=== PATIENT | female | born 2000 | race Caucasian/White ===

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

== ENCOUNTER 2020-02-15 20:37 | Observation (INO) | payer BC, SELFPAY ==
[2020-02-15 20:42] VITALS: BP 120/62; PULSE 87; RESP 16; TEMP 37.1; O2SAT 100
[2020-02-15 21:01] LABS: Abs Immature Grans 0.04 k/cumm (0.0-0.09); Absolute Basophil Count 0.01 k/cumm (0.0-0.2); Absolute Eosinophil Count 0.06 k/cumm (0.0-0.7); Absolute Lymphocyte Count 2.52 k/cumm (1.2-3.4); Absolute Monocyte Count 1.05 k/cumm (0.11-0.7); Absolute Neutrophil Count 10.46 k/cumm (1.2-6.7); Basophils % 0.1; Eosinophils % 0.4; HCT 38.4 % (36.0-46.0); HGB 13.1 g/dL (12.0-15.5); Immature Grans % 0.3 %; Lymphocytes % 17.8; Mean Corp. HGB Concentration 34.1 g/dL (32.0-36.0); Mean Corpuscular Hemoglobin 30.5 pg (27.0-33.0); Mean Corpuscular Volume 89.5 fL (80-95); Mean Platelet Volume 10.4 fL (8.0-11.0); Monocytes % 7.4; Platelet Count 216 x1000/uL (130-400); RBC 4.29 m/cumm (4.00-5.20); RBC Distribution Width 11.5 % (11.7-14.6); White Blood Cell Count 14.13 k/cumm (4.4-10.8)
[2020-02-15 21:11] LABS: ALT 23 U/L (14-59); AST 18 U/L (15-37); Albumin 4.3 g/dL (3.4-5.0); Alkaline Phosphatase 117 U/L (46-116); Anion Gap 9.8 mmol/L (3-11); BUN 14 mg/dL (7-18); Bilirubin, Total 0.5 mg/dL (0.2-1.0); CO2 28.2 mmol/L (21.0-32.0); CREATININE 0.87 mg/dL (0.55-1.02); Calcium 9.5 mg/dL (8.5-10.1); Chloride 99 mmol/L (98-107); Glucose 100 mg/dL (74-106); Potassium 3.8 mmol/L (3.5-5.1); Sodium 137 mmol/L (136-145); Total Protein 8.2 g/dL (6.4-8.2)
--- NOTE | 2020-02-15 21:30 | DI.CT_ITS ---
EXAM: CT ABDOMEN PELVIS W CLINICAL HISTORY: Right lower quadrant pain, WBC 14,000 TECHNIQUE: Imaging Protocol: Axial computed tomography images with coronal and sagittal reformatted images were created and reviewed CONTRAST MATERIAL: Intravenous: Omnipaque 350 Contrast volume:100 mL Oral: No COMPARISON: No exams were available for comparison FINDINGS: ABDOMEN: Lung Bases: Normal where visualized. Liver: Normal density. No measurable mass. Portal, Superior Mesenteric, and Splenic Veins: Unremarkable. Gallbladder and Biliary Tract: No radiodense calculus or dilation. Pancreas: Normal density, no abnormal calcifications or inflammatory process. Spleen: Normal. Adrenals: No masses seen. Kidneys: Normal size, contour and axis. No radiodense stones or obstructive uropathy. No masses seen. Abdominal Aorta: Abdominal portion non-dilated. Bowel: No obstruction or bowel wall thickening. The appendix is 1.2 cm in diameter with the enhancing wall. Periappendiceal inflammatory changes are seen. There is a focus of hyperdensity within the a ppendix suspicious for a tiny appendicolith. No abscess or free air. Peritoneal Cavity: There is a tiny amount of free fluid in the cul-de-sac. Lymph Nodes: Within normal limits. Bones: Unremarkable. Soft Tissues: Unremarkable. PELVIS: Bladder: Symmetric distention, no gross wall thickening. Reproductive Organs: There is an intrauterine device in position. There is a 2.9 x 2.3 cm dominant f ollicle on the right ovary. Lymph Nodes: Within normal limits. Bones: Within normal limits. IMPRESSION: Findings consistent with acute appendicitis. Appendicoliths is present. No abscess or free air. RADIATION DOSE DELIVERED: Total DLP DATA REPOSITORY: All CT scans at this facility are submitted to the National Radiology Data Registry (NRDR) Dose Index Registry (DIR) with the [employer] (ACR). RADIATION OPTIMIZATION: All CT scans at this facility use at least one of these dose optimization te chniques: automated exposure control; mA and/or kV adjustment per patient size (includes targeted exa ms where dose is matched to clinical indication); or iterative reconstruction.
[2020-02-15] MEDS: Normal Saline 1,000 ML 1000 ML IV (21:37)
[2020-02-15 21:39] LABS: Bilirubin Negative (Negative); Blood Negative (Negative); Clarity Sl Cloudy (Clear); Glucose Negative (Negative); Ketones Negative (Negative); Leukocyte Esterase Negative (Negative); Nitrite Negative (Negative); Specific Gravity 1.015 (1.005-1.025); Urobilinogen 0.2 EU/dL (Up TO 0.2)
[2020-02-15] MEDS: Omnipaque 350 MG/ML 100 ML BTL IJ (22:04)
[2020-02-15] MEDS: Normal Saline - Diluent 50 ML VIAL IV (22:05)
--- NOTE | 2020-02-15 22:20 | ED.GENADUL_ITS ---
Discharge Plan Disposition Patient Disposition: OTHER Condition: Serious Discharge Details Chief Complaint: Abd Prob Clinical Impression: Acute appendicitis Primary Care Provider: Sandra Lopez ED Provider: Parish Bear Home Meds and New Rx's Prescriptions: No Action Mirena 20 mcg/24 hr (5 years) intrauterine device 1 insert IY ONCE Qty: 1 RF: 0 ferrous sulfate 27 mg iron tablet 27 mg PO DAILY RF: 0 cholecalciferol (vitamin D3) 3,000 unit tablet 1,000 unit PO DAILY RF: 0 spironolactone 50 mg tablet 100 mg PO DAILY RF: 0 Medical Decision Making <ELIZABETH Awan - Last Filed: 02/15/20 22:57> This is a 19-year-old female who presents with abdominal pain, nausea, lack of appetite for the past 24-48 hours. Given her evaluation I do believe that most likely diagnosis is that of appendicitis but certainly cannot rule out diagnosis such as muscular strain, gastroenteritis, pyelonephritis, UTI, ovarian cyst, etc. I feel as though ovarian torsion is highly unlikely given her presentation. Will give IV fluid, obtain routine laboratory values and CT if indicated. White blood cell count of 14.13. Laboratory values otherwise unremarkable. CT obtained and virtual radiology reads the CT as acute appendicitis, 10 mm in length. Wall thickening with stranding, no perforation or free fluid. Also right ovarian cyst. Patient given IV Zosyn. Discussed the case with Dr. Callejas who will be happy to admit the patient to her services, request that I put in holding orders in the meantime. Holding orders placed. Diagnosis and plan discussed with patient. She has no additional questions or concerns. Declines pain medication at this time Medical Records Medical records reviewed: Yes I reviewed the patient's medical records. Lab Data Lab results reviewed: Yes I reviewed the patient's lab results. Lab results narrative: Laboratory Tests Range/Units 02/15/20 02/15/20 02/15/20 20:50 20:50 21:26 WBC (4.4-10.8) k/cumm 14.13 H RBC (4.00-5.20) m/cumm 4.29 Hgb (12.0-15.5) g/dL 13.1 Hct (36.0-46.0) % 38.4 MCV (80-95) fL 89.5 MCH (27.0-33.0) pg 30.5 MCHC (32.0-36.0) g/dL 34.1 RDW (11.7-14.6) % 11.5 L Plt Count (130-400) x1000/uL 216 MPV (8.0-11.0) fL 10.4 Immature Gran % % 0.3 Neutrophils % 74.0 Lymphocytes % 17.8 Monocytes % 7.4 Eosinophils % 0.4 Basophils % 0.1 Absolute Neutrophils (1.2-6.7) k/cumm 10.46 H Absolute Lymphocytes (1.2-3.4) k/cumm 2.52 Absolute Monocytes (0.11-0.7) k/cumm 1.05 H Absolute Eosinophils (0.0-0.7) k/cumm 0.06 Absolute Basophils (0.0-0.2) k/cumm 0.01 Sodium (136-145) mmol/L 137 Potassium (3.5-5.1) mmol/L 3.8 Chloride (98-107) mmol/L 99 Carbon Dioxide (21.0-32.0) mmol/L 28.2 Anion Gap (3-11) mmol/L 9.8 BUN (7-18) mg/dL 14 Creatinine (0.55-1.02) mg/dL 0.87 Estimated GFR/1.73 m2 (mL/min/1.73m2) >= 60.00 Glucose (74-106) mg/dL 100 Calcium (8.5-10.1) mg/dL 9.5 Total Bilirubin (0.2-1.0) mg/dL 0.5 AST (15-37) U/L 18 ALT (14-59) U/L 23 Alkaline Phosphatase (46-116) U/L 117 H Total Protein (6.4-8.2) g/dL 8.2 Albumin (3.4-5.0) g/dL 4.3 Urine Color (Yellow) Straw Urine Clarity (Clear) Sl cloudy Urine pH (5-8) 7.0 Ur Specific [place] (1.005-1.025) 1.015 Urine Protein (Negative) mg/dL Negative Urine Ketones (Negative) mg/dL Negative Urine Blood (Negative) Negative Urine Nitrite (Negative) Negative Urine Bilirubin (Negative) Negative Urine Urobilinogen (Up TO 0.2) EU/dL 0.2 Ur Leukocyte Esterase (Negative) Negative Urine Glucose (Negative) mg/dL Negative <Gilbert Chinchilla MD - Last Filed: 02/15/20 22:53> I had a [id number] encounter with the patient. I evaluated the patient. I discussed case with TABLET MAKING MACHINE OPERATOR/PA and I reviewed TABLET MAKING MACHINE OPERATOR/PA note and agree with note as documented HPI <ELIZABETH Awan - Last Filed: 02/15/20 22:57> General Mode of arrival: ambulatory . Date/Time Provider Initiated Documentation: 02/15/20 20:50 . Limitations to Documentation: no limitations . HPI Narrative: This is a 19-year-old female with history of IUD, irregular menstrual cycle, last period roughly 2 months ago. She presents today reporting diffuse abdominal pain mild in nature that began yesterday associated with some nausea. Today the pain has been worse in the right lower quadrant and sharp in nature. Reports increased nausea and now a lack of appetite. Reports pain is worse with movement. Denies fever or recent illness. She has recently traveled to other places in [place] but has practiced good social distancing. She denies headache, sore throat, neck pain, chest pain, shortness of breath. Reports mild low back pain diffusely. Denies vaginal bleeding or discharge. Denies urinary symptoms or change in bowels. Patient reports that she is sexually active with one partner who has no symptoms. She has no history of STD. Related Data Home Medications Medication Instructions Recorded Confirmed levonorgestrel 20 mcg/24 hours (5 1 insert IY ONCE #1 each 08/30/18 02/15/20 yrs) 52 mg intrauterine device cholecalciferol (vitamin D3) 75 1,000 unit PO DAILY tab 08/12/19 02/15/20 mcg (3,000 unit) tablet ferrous sulfate 27 mg iron tablet 27 mg PO DAILY 08/12/19 02/15/20 spironolactone 100 mg PO DAILY 02/15/20 02/15/20 Previous Rx's Medication Instructions Recorded levonorgestrel 20 mcg/24 hours (5 1 insert IY ONCE #1 each 08/30/18 yrs) 52 mg intrauterine device Allergies Allergy/AdvReac Type Severity Reaction Status Date / Time No Known Allergies Allergy Verified 02/15/20 20:48 General Stated Complaint: Abd Prob KEARA: 3 Review of Systems <ELIZABETH Awan - Last Filed: 02/15/20 22:57> Constitutional Constitutional: Denies fatigue, Denies fever(s) and Denies headache(s) ENT Ears, Nose, Mouth, and Throat: Denies headache(s), Denies neck pain and Denies sore throat Cardiovascular Cardiovascular: Denies chest pain and Denies dyspnea Respiratory Respiratory: Denies cough and Denies dyspnea Gastrointestinal Gastrointestinal: Reports abdominal pain, Denies diarrhea, Reports nausea and Denies vomiting Genitourinary Genitourinary: Denies dysuria and Denies vaginal discharge Musculoskeletal Musculoskeletal: Reports back pain and Denies neck pain Integumentary/Breasts Skin/Breast: Denies rash Neurologic Neurologic: Denies headache(s) Endocrine Endocrine: Denies fatigue PFSH <ELIZABETH Awan - Last Filed: 02/15/20 22:57> Medical History Acne Asthma outgrown Herniated intervertebral disc of lumbar spine Family History Other Essential hypertension Hyperlipidemia Paternal grandparents Parkinson disease PGF Asthma Mother Asthma Other Heart disease Social History Smoking/Tobacco Use Status: Never Drug use: Never Substance use type: does not use Do you feel safe at home: Yes Do you feel safe in your relationship?: Yes Female Reproductive History Menstrual control method: vaginal ring and progestin IUCD (Mirena inserted by Mary Carmen Chinchilla APRN [id number] EXP=12/2020) History History 0 Para Hx # Term Pregnancies Multiple births Hx # Pregnancies Ectopic pregnancies AB induced Hx Number of Living Children AB spontaneous Exam <ELIZABETH Awan - Last Filed: 02/15/20 22:57> Const General: cooperative, healthy appearing, comfortable and no acute distress Orientation: alert, awake and oriented x3 HENMT Head: normal to inspection, normocephalic and atraumatic Mouth: moist mucous membranes Throat: posterior oropharynx normal Eyes Conjunctivae: conjunctivae normal Sclera: sclerae normal Neck Neck: normal visual inspection, full ROM, trachea midline and supple Resp Effort & Inspection: normal respiratory effort and able to speak in complete sentences Auscultation: clear to auscultation bilaterally Cardio Rate: regular rate Rhythm: regular rhythm GI Inspection: normal to inspection Palpation: soft, not firm, no guarding, not rigid and tender in the RLQ and with rebound tenderness Auscultation: normal bowel sounds Back/Spine/Pelvis Back: back tenderness Skin General skin exam: no rashes or lesions noted Neuro General: patient alert, patient awake, moves all extremities and no focal motor deficits Speech: speech normal Motor: muscle tone normal throughout Sensory Exam: no sensory deficits noted Psych Appearance: grossly normal Mental Status: mental status grossly normal Course <ELIZABETH Awan - Last Filed: 02/15/20 22:57> Vital Signs Vital signs: Vital Signs Temperature 37.1 C 02/15/20 20:42 Pulse 87 02/15/20 20:42 Respiratory Rate 16 02/15/20 20:42 Blood Pressure 120/62 02/15/20 20:42 Pulse Oximetry 100 02/15/20 20:42 Temperature 37.1 C 02/15/20 20:42 Temperature Source Oral 02/15/20 20:42 Pulse 87 02/15/20 20:42 Respiratory Rate 16 02/15/20 20:42 Respiratory Effort 02/15/20 20:46 Blood Pressure 120/62 02/15/20 20:42 Blood Pressure Position Sitting 02/15/20 20:42 Pulse Oximetry 100 02/15/20 20:42 Pain Level 8 02/15/20 20:42 Lab/Test Results Lab/Test Results: Laboratory Tests Range/Units 02/15/20 02/15/20 02/15/20 20:50 20:50 21:26 WBC (4.4-10.8) k/cumm 14.13 H RBC (4.00-5.20) m/cumm 4.29 Hgb (12.0-15.5) g/dL 13.1 Hct (36.0-46.0) % 38.4 MCV (80-95) fL 89.5 MCH (27.0-33.0) pg 30.5 MCHC (32.0-36.0) g/dL 34.1 RDW (11.7-14.6) % 11.5 L Plt Count (130-400) x1000/uL 216 MPV (8.0-11.0) fL 10.4 Immature Gran % % 0.3 Neutrophils % 74.0 Lymphocytes % 17.8 Monocytes % 7.4 Eosinophils % 0.4 Basophils % 0.1 Absolute Neutrophils (1.2-6.7) k/cumm 10.46 H Absolute Lymphocytes (1.2-3.4) k/cumm 2.52 Absolute Monocytes (0.11-0.7) k/cumm 1.05 H Absolute Eosinophils (0.0-0.7) k/cumm 0.06 Absolute Basophils (0.0-0.2) k/cumm 0.01 Sodium (136-145) mmol/L 137 Potassium (3.5-5.1) mmol/L 3.8 Chloride (98-107) mmol/L 99 Carbon Dioxide (21.0-32.0) mmol/L 28.2 Anion Gap (3-11) mmol/L 9.8 BUN (7-18) mg/dL 14 Creatinine (0.55-1.02) mg/dL 0.87 Estimated GFR/1.73 m2 (mL/min/1.73m2) >= 60.00 Glucose (74-106) mg/dL 100 Calcium (8.5-10.1) mg/dL 9.5 Total Bilirubin (0.2-1.0) mg/dL 0.5 AST (15-37) U/L 18 ALT (14-59) U/L 23 Alkaline Phosphatase (46-116) U/L 117 H Total Protein (6.4-8.2) g/dL 8.2 Albumin (3.4-5.0) g/dL 4.3 Urine Color (Yellow) Straw Urine Clarity (Clear) Sl cloudy Urine pH (5-8) 7.0 Ur Specific [place] (1.005-1.025) 1.015 Urine Protein (Negative) mg/dL Negative Urine Ketones (Negative) mg/dL Negative Urine Blood (Negative) Negative Urine Nitrite (Negative) Negative Urine Bilirubin (Negative) Negative Urine Urobilinogen (Up TO 0.2) EU/dL 0.2 Ur Leukocyte Esterase (Negative) Negative Urine Glucose (Negative) mg/dL Negative POC- Test(urine) Negative
[2020-02-15 22:25] VITALS: BP 121/69; PULSE 87; RESP 16; TEMP 36.9; O2SAT 98
--- NOTE | 2020-02-15 22:42 | DI.VRAD_ITS ---
PROCEDURE INFORMATION: Exam: CT Abdomen And Pelvis With Contrast Exam date and time: 02/15/2020 9:42 PM Age: 19 years old Clinical indication: Abdominal pain TECHNIQUE: Imaging protocol: Computed tomography of the abdomen and pelvis with intravenous contrast. Contrast material: OMINPAQUE 350; Contrast volume: 100 ml; Contrast route: INTRAVENOUS (IV); COMPARISON: IN ABDOMEN PELVIS ULTRASOUND 05/23/2015 3:25 PM FINDINGS: Lungs: The visualized lung bases appear normal. Liver: Normal. No mass. Gallbladder and bile ducts: The gallbladder is normal. There is no evidence of biliary ductal dilation. Pancreas: Normal. No ductal dilation. Spleen: The spleen is normal in size and density. Adrenals: The adrenal glands are normal. Kidneys and ureters: Unremarkable. No hydronephrosis, no renal or ureteral calculi. Stomach and bowel: There is no evidence of small bowel or colonic obstruction. There is mild fecal stasis throughout the colon. Appendix: The appendix demonstrates moderate diffuse distention, consistent with moderate acute appendicitis. There is periappendiceal inflammatory stranding and a small amount of free fluid. No evidence of abscess or perforation. Intraperitoneal space: There is no free fluid or free air in the peritoneal cavity. Vasculature: Unremarkable. No abdominal aortic aneurysm. Lymph nodes: Unremarkable. No enlarged lymph nodes. Bladder: Unremarkable as visualized. Reproductive: There is a T-shaped intrauterine device in expected position within the endometrial cavity. There is a dominant cyst or follicle in the right ovary measuring 2.9 by 2.3 cm. Bones/joints: Unremarkable. No acute fracture. Soft tissues: Unremarkable. IMPRESSION: 1. Moderate acute appendicitis. 2. A 2.9 cm dominant cyst or follicle in the right ovary. THIS REPORT CONTAINS FINDINGS THAT MAY BE CRITICAL TO PATIENT CARE. The findings were verbally communicated via telephone conference with Parish Bear at 10:38 PM EDT on 02/15/2020. The findings were acknowledged and understood. Dictated and Authenticated by: Sotero Israel MD. Ordering:DANIEL Lugo MD
[2020-02-15] MEDS: PIPERACILLIN/TAZO 3.375 GM in Normal Saline 50 ML IVPB (23:00)
[2020-02-16] VITALS (11 sets, daily range): BP systolic 91–116; BP diastolic 44–76; PULSE 53–86; RESP 11–17; TEMP 35.9–37.3; O2SAT 97–100
[2020-02-16] MEDS: Normal Saline 1,000 ML 150 ML IV (01:38)
[2020-02-16] MEDS: Ketorolac 30 MG/ML VIAL IVP (01:41)
[2020-02-16] MEDS: Normal Saline Flush 10 ML SYR IVP (01:41)
[2020-02-16] MEDS: ACETAMINOPHEN 1,000 MG/100 ML BTL 400 MG IVPB (01:45)
--- NOTE | 2020-02-16 06:02 | W.PM.HP.N ---
Date of service: 02/16/20 Time of Service: 06:02 Assessment and Plan Assessment and plan (1) Acute appendicitis: Status: Acute Assessment and plan: A\\ Healthy 19 year old female with acute Appendicitis P\\ Laparoscopic Appendectomy Risks, benefits and complications reviewed. Complications include but are not limited to bleeding, infection, abscess, injury to bowel and vessels, adverse reaction to medications and need for more surgery if an abscess develops. Questions were entertained and answered to her satisfaction and she wished to proceed. No guarantees were given or implied. Qualifiers: Acute appendicitis type: with localized peritonitis Appendicitis gangrene presence: without gangrene Appendicitis perforation presence: without perforation Appendicitis abscess presence: without abscess Qualified Code(s): K35.30 - Acute appendicitis with localized peritonitis, without perforation or gangrene History of Present Illness History of Present Illness Chief Complaint: Acute Appendicitis Consults Consult date: 02/16/20 Requesting physician: Parish Bear Narrative: This is a 19-year-old female with history of IUD, irregular menstrual cycle, last period roughly 2 months ago. She presents today reporting diffuse abdominal pain mild in nature that began yesterday associated with some nausea. Today the pain has been worse in the right lower quadrant and sharp in nature. Reports increased nausea and now a lack of appetite. Reports pain is worse with movement. Denies fever or recent illness. She has recently traveled to other places in [place] but has practiced good social distancing. She denies headache, sore throat, neck pain, chest pain, shortness of breath. Reports mild low back pain diffusely. Denies vaginal bleeding or discharge. Denies urinary symptoms or change in bowels. Patient reports that she is sexually active with one partner who has no symptoms. She has no history of STD. Admitted at midnight for surgery this morning. Has been able to sleep after getting some toradol and Tylenol as well as Morphine. No Nausea. CT scan ABDO\PELV FINDINGS: Lungs: The visualized lung bases appear normal. Liver: Normal. No mass. Gallbladder and bile ducts: The gallbladder is normal. There is no evidence of biliary ductal dilation. Pancreas: Normal. No ductal dilation. Spleen: The spleen is normal in size and density. Adrenals: The adrenal glands are normal. Kidneys and ureters: Unremarkable. No hydronephrosis, no renal or ureteral calculi. Stomach and bowel: There is no evidence of small bowel or colonic obstruction. There is mild fecal stasis throughout the colon. Appendix: The appendix demonstrates moderate diffuse distention, consistent with moderate acute appendicitis. There is periappendiceal inflammatory stranding and a small amount of free fluid. No evidence of abscess or perforation. Intraperitoneal space: There is no free fluid or free air in the peritoneal cavity. Vasculature: Unremarkable. No abdominal aortic aneurysm. Lymph nodes: Unremarkable. No enlarged lymph nodes. Bladder: Unremarkable as visualized. Reproductive: There is a T-shaped intrauterine device in expected position within the endometrial cavity. There is a dominant cyst or follicle in the right ovary measuring 2.9 by 2.3 cm. Bones/joints: Unremarkable. No acute fracture. Soft tissues: Unremarkable. IMPRESSION: 1. Moderate acute appendicitis. 2. A 2.9 cm dominant cyst or follicle in the right ovary. Review of Systems Constitutional Constitutional: Reports as per HPI, Denies fever(s), Denies headache(s) and Reports poor appetite Eyes Eyes: Denies change in vision ENT Ears, Nose, Mouth, and Throat: Denies change in voice, Denies headache(s) and Denies hoarseness Cardiovascular Cardiovascular: Denies chest pain, Denies irregular heart rhythm, Denies palpitations and Denies dyspnea Respiratory Respiratory: Denies cough and Denies dyspnea Gastrointestinal Gastrointestinal: Reports as per HPI, Denies change in bowel habits, Denies dyspepsia, Denies heartburn and Denies vomiting Genitourinary Genitourinary: Reports amenorrhea (IUD) and Denies dysuria Musculoskeletal Musculoskeletal: Reports system reviewed and no additional complaints, except as documented Integumentary/Breasts Skin/Breast: Reports system reviewed and no additional complaints, except as documented Neurologic Neurologic: Reports system reviewed and no additional complaints, except as documented and Denies headache(s) Psychiatric Psychiatric: Reports system reviewed and no additional complaints, except as documented Endocrine Endocrine: Reports system reviewed and no additional complaints, except as documented and Denies palpitations Hematologic/Lymphatic Hematologic/Lymphatic: Denies easy bleeding and Denies easy bruising [facility] Medical History (Updated 02/16/20 @ 06:10 by Mily Callejas MD) Acne Asthma outgrown Back pain with radiation (Inactive 02/04/14) seen by chiro who feels 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 ?-rec MRI and steroid taper- referred to ortho at [facility] [place] Herniated intervertebral disc of lumbar spine Herniation of multiple intervertebral discs (Inactive 02/12/14) L4-5, L5-S1 - NEUROSURGERY STEFANYNETTE HENRY March 2014 IUD surveillance (Inactive) Molluscum contagiosum (Inactive) 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 Surgical History (Updated 02/16/20 @ 06:06 by Mily Callejas MD) H/O arthroscopic knee surgery (Chronic) right knee x3 S/P discectomy for herniated nucleus pulposus (Inactive) Family History Other Essential hypertension Hyperlipidemia Paternal grandparents Parkinson disease PGF Asthma Mother Asthma Other Heart disease Social History (Updated 02/16/20 @ 06:06 by Mily Callejas MD) Smoking/Tobacco Use Status: Never Alcohol Intake: current Alcohol Intake frequency: a few times a month Drug use: Never Substance use type: does not use Household members: family Education Level: college Details: [employer]ando at [employer] Do you feel safe at home: Yes Do you feel safe in your relationship?: Yes Female Reproductive History Menstrual control method: vaginal ring and progestin IUCD (Mirena inserted by Mary Carmen Chinchilla APRN GZR=[id number] EXP=12/2020) History History 0 Para Hx # Term Pregnancies Multiple births Hx # Pregnancies Ectopic pregnancies AB induced Hx Number of Living Children AB spontaneous Meds Home Medications and Allergies Home Medications Medication Instructions Recorded Confirmed Type levonorgestrel 20 mcg/24 hours (5 1 insert IY ONCE #1 each 08/30/18 02/15/20 Rx yrs) 52 mg intrauterine device cholecalciferol (vitamin D3) 75 1,000 unit PO DAILY tab 08/12/19 02/15/20 History mcg (3,000 unit) tablet ferrous sulfate 27 mg iron tablet 27 mg PO DAILY 08/12/19 02/15/20 History spironolactone 100 mg PO DAILY 02/15/20 02/15/20 History Allergies Allergy/AdvReac Type Severity Reaction Status Date / Time No Known Allergies Allergy Verified 02/15/20 20:48 Exam Const General: cooperative and no acute distress Orientation: alert and oriented x3 HENMT Head: normocephalic and atraumatic Eyes Pupils: PERRL Resp Effort & Inspection: normal respiratory effort Auscultation: clear to auscultation bilaterally Cardio Rate: regular rate Rhythm: regular rhythm Heart Sounds: no gallops, no murmurs and no rubs GI Inspection: normal to inspection Palpation: soft and tender in the RLQ Auscultation: normal bowel sounds General: deferred Results Labs Result diagrams: 02/15/20 20:50 02/15/20 20:50 Labs: Laboratory Results - last 24 hr 02/15/20 02/15/20 02/15/20 20:50 20:50 21:26 WBC 14.13 H RBC 4.29 Hgb 13.1 Hct 38.4 MCV 89.5 MCH 30.5 MCHC 34.1 RDW 11.5 L Plt Count 216 MPV 10.4 Immature Gran % 0.3 Neutrophils % 74.0 Lymphocytes % 17.8 Monocytes % 7.4 Eosinophils % 0.4 Basophils % 0.1 Absolute Neutrophils 10.46 H Absolute Lymphocytes 2.52 Absolute Monocytes 1.05 H Absolute Eosinophils 0.06 Absolute Basophils 0.01 Sodium 137 Potassium 3.8 Chloride 99 Carbon Dioxide 28.2 Anion Gap 9.8 BUN 14 Creatinine 0.87 Estimated GFR/1.73 m2 >= 60.00 Glucose 100 Calcium 9.5 Total Bilirubin 0.5 AST 18 ALT 23 Alkaline Phosphatase 117 H Total Protein 8.2 Albumin 4.3 Urine Color Straw Urine Clarity Sl cloudy Urine pH 7.0 Ur Specific [place] 1.015 Urine Protein Negative Urine Ketones Negative Urine Blood Negative Urine Nitrite Negative Urine Bilirubin Negative Urine Urobilinogen 0.2 Ur Leukocyte Esterase Negative Urine Glucose Negative Last Vital Signs Temp 97.7 F 02/16/20 03:45 Pulse 60 02/16/20 03:45 Resp 16 02/16/20 03:45 BP 95/54 L 02/16/20 03:45 Pulse Ox 98 02/16/20 03:45 COVID-19 Screening In the past 14 days, have you traveled outside of [place]?: YES Had IN PERSON contact w/suspected or confirmed C-19 person: No
[2020-02-16] MEDS: PIPERACILLIN/TAZO 3.375 GM in Normal Saline 50 ML IVPB (06:47)
[2020-02-16] MEDS: Lactated Ringers 1,000 ML 30 ML IV (06:47)
[2020-02-16] MEDS: Lidocaine 1% Multi-Dose 50 ML VIAL (07:07)
--- NOTE | 2020-02-16 07:20 | APP_PTH ---
PATIENT: SILAS AGUIAR LOC: U#:[id number] AGE/SX: 19/F ROOM: RE02/15/[address]: Mily Callejas MD : 2000 BED: A DIS: 02/16/2020 SPEC #: [id number] RECD: 02/17/20 12:39 STATUS: SOUIvan REQ #: [id number] LINSEY: 02/16/20 07:[address]: Mily Callejas DEPT: Surgical Specimen RECD BY: Pamella Schmidt ENTERED: 02/17/20 12:39 SP TYPE: Appendix OTHR DR: Sandra Lopez Tissues: 1 - APPENDIX NOT INCIDENTAL Procedures: GROSS AND MICRO LEVEL 3 Comments: [id number]
[2020-02-16] MEDS: Bupivacaine LIPOSOME/PF 133 MG/10 ML VIAL IJ (07:23)
--- NOTE | 2020-02-16 07:48 | ROE_ITS ---
Date of service: 02/16/20 Time of Service: 07:48 Operative Note Operative Note DATE OF PROCEDURE: 02/16/20 PRE-OP DIAGNOSIS: acute appendicitis POST-OP DIAGNOSIS: same PROCEDURE: Laparoscopic appendectomy SURGEON: Mily Callejas [employer] COMPENSATION LEGAL SECRETARY: Gisselle Don ANESTHESIA: GETA and local (1% Lidocaine and Exparel) ESTIMATED BLOOD LOSS: 20 PATHOLOGY: other (Appendix) COMPLICATIONS: None Patient was transported to: PACU Patient's condition: stable Indications: Mrs. Franz is a pleasant 19 year old female admitted for acute appendicitis with <24 hours of pain. Laparoscopic appendectomy was recommended. Risks, benefits and complications have been reviewed. Complications include but are not limited to bleeding, infection, injury to adjacent bowel, abscess formation, staple line leak, inability to do the procedure laparoscopically and adverse reaction to the medications. Questions were entertained and answered to their satisfaction and they wished to proceed. No guarantees were given or implied. Findings: Enlarged distal half of the appendix. No signs of perforation Normal liver and Gallbladder Procedure Description: After informed consent was obtained the patient was taken to the operating room placed in the supine position, SCDs were applied as well as monitors. The patient was then placed under general anesthesia and intubated without any difficulty. Next a Corona catheter was placed in a standard surgical fashion. At this point the abdomen was prepped and draped in a sterile surgical fashion with chlorhexidine. A second timeout was done and the patient's name, date of , operation to be performed, DVT prophylaxis, a ntibiotic given were reviewed and fire risk was assessed. 1 % lidocaine was injected into the dermis just above the umbilicus. A small 5 mm incision was made with an 15 blade. The skin was grasped with penetrating towel clamps on either side of the incision and then using a Visiport a 5 mm port was placed under direct visualization into the abdomen. The abdomen was insufflated. Local anesthetic was then injected just above the pubic symphysis. A small 5 mm incision was made with an 15 blade and another 5 mm port was placed under direct visualization into the abdomen. The local anesthetic was then injected in the left lower quadrant area and a 12 mm incision was made with an 15 blade. A 12 mm port was then placed under direct visualization. The patient's bed was then turned to the left head down allowing me to sweep of the small bowel out of the right lower quadrant. The cecum was gently grasped and the appendix was identified. The appendix looked inflammed and thickened. Light yellow fluid was noted in the pelvis. The appendix was grasped at the neck and pulled up slightly allowing me to visualize the junction with the cecum. Using the laparoscopic LigaSure the mesoappendix was slowly transected. Using a laparoscopic straight stapler the appendix was transected at the junction with the cecum. The appendix was placed into an Endo Catch bag and removed through the 12 mm port site. The port was placed back into the abdomen and the staple line was identified. No bleeding was noted. The transected mesentery was identified and no bleeding was noted. The staple line was inspected one more time and no bleeding was identified at this point. A this point the liver was insepected and looked normal. The Gallbladder looked normal. Next 20 cc of the local anesthetic was injected above the liver bed to hopefully help with postoperative shoulder pain. The 2 5 mm ports were then removed under direct visualization and no bleeding was noted from the fascia. The insufflation was stopped and the 12 mm port was removed. The 12 mm port site fascia was closed with a 0 Vicryl [id number] suture. The skin was then closed with 4-0 Vicryl. The skin was cleaned and dried and skin affix was applied. The patient was woken up, extubated and taken back to recovery room in stable condition. There were no immediate complications. Sponge, instrument, and needle counts were correct at the end of the case x2.
--- NOTE | 2020-02-16 07:57 | DSE_ITS ---
Date of service: 02/16/20 Time of Service: 12:30 DS: Diagnosis Discharge Diagnosis (1) Acute appendicitis: Status: Acute Discharge Plan Disposition Patient Disposition: HOME Condition: Improving Discharge Details Chief Complaint: Abd Prob Clinical Impression: Acute appendicitis Reason For Visit: ACUTE APPENDICITIS Admit Date/Time: 02/15/20 22:49 Admit Provider: Mily Callejas Attending Provider: Mily Callejas Primary Care Provider: Sandra Lopez ED Provider: [facility] Course Hospital Course: Mrs. Franz is a pleasant 19 year old female admitted at midnight with acute appendicitis. She was given a dose of antibiotic and taken to the Operating room the next morning. She underwent a laparoscopic appendectomy with no immediate complications. She recovered well post-operatively and was able to drink and eat without nausea or vomiting. Pain was controlled on Tylenol 650 mg, ibuprofen 600 mg and [place] 5/325 for breakthrough pain. Patient is discharged home with Tylenol, ibuprofen and [place] Home Meds and New Rx's Prescriptions: New acetaminophen [Tylenol] 325 mg tablet 650 mg PO Q6H PRN (Reason: pain) Qty: 30 RF: 0 ibuprofen 200 mg tablet 600 mg PO Q6H PRNQty: 30 RF: 0 hydrocodone-acetaminophen 5-325 mg tablet 1 tab PO Q6H PRN (Reason: pain) Qty: 14 RF: 0 Continued Mirena 20 mcg/24 hr (5 years) intrauterine device 1 insert IY ONCE Qty: 1 RF: 0 ferrous sulfate 27 mg iron tablet 27 mg PO DAILY RF: 0 cholecalciferol (vitamin D3) 3,000 unit tablet 1,000 unit PO DAILY RF: 0 spironolactone 50 mg tablet 100 mg PO DAILY RF: 0 Discharge Instructions Instructions: Laparoscopic Appendectomy (GEN) Additional Instructions: Activity at Home after surgery: 1. Make sure you walk outside at least 4 times per day 2. You should be able to climb a flight of stairs 3. No driving while in pain or taking pain medications 4. No strenuous activity or heavy lifting for 2 weeks (laparoscopic surgery) 5. avoid core exercises for 2 weeks. you may do upper body and lower body exercises. You can swim in 1 week Diet, Nutrition, & wound healin. Avoid alcohol until after you are recovered from your surgery 2. Make sure to eat plenty of lean protein (meat, fish, eggs, cottage cheese, beans) 3. Eat a variety of fruits and vegetables. Eat plenty of high fiber foods to avoid constipation. 4. Drink plenty of liquids to stay hydrated and avoid constipation Pain Medications: 1. Take Tylenol 650 mg every 6 hours and Ibuprofen 600 mg every 6 hours (May alternate between tylenol and ibuprofen) 2. Take Hydrocodon/acetamiophen 5/325 1 tab every 6 hours as needed for breakthrough pain. If you take Hydrocodon with acetamiophen please do not take extra Tylenol Limit of no more then 4000 mg of tylenol or ibuprofen in a 24 hour period For Constipation: 1. Take Milk of Magnesia or MiraLax as needed for constipation (The hydrocodon makes you constipated) Other: 1. You may shower daily. Do not scrub the incisions 2. Do not soak the incisions for 1 week 3. You may alternate ice and heat as needed for pain and swelling Wound Care: 1. Keep the incisions clean and dry Please call our office if you develop: 1. Fevers >101.5 2. Nausea or Vomiting 3. Worsening pain 4. Redness and thick discharge from the wounds If after hours please call the Hospital at and ask to speak to the on-call surgeon Referrals: Mily Callejas MD [ [facility] STAFF PHYSICIAN] - Activity:: No lifting, pulling or pushing >20 lkb x 2 weeks Equipment/Supplies:: No Equipment Needed Diet:: As Tolerated Discharge Orders Discharge Orders: Discharge Order (Routine); Ordered 02/16/20 Ordered By: Mily Callejas DS: Summary Status at Discharge Functional status at discharge: independent ambulation Overall status at discharge: patient is progressing back to baseline Mental Status: mental status grossly normal Speech and Movement: speech and movement normal Mood: congruent mood Affect: normal affect Exam Resp Effort & Inspection: normal respiratory effort Auscultation: clear to auscultation bilaterally Cardio Rate: regular rate Rhythm: regular rhythm GI Inspection: incision (c/d/i) Palpation: soft and tender (appropriatly tender around incisions) Auscultation: normal bowel sounds Psych Mental Status: mental status grossly normal Speech and Movement: speech and movement normal Mood: congruent mood Affect: normal affect DS: Data Vitals/I&O Vitals and I&O: Vital Signs Temperature 97.9 F 02/16/20 07:54 Temperature Source Temporal Artery Scan 02/16/20 03:45 Pulse 53 L 02/16/20 07:54 Pulse Rhythm Regular 02/16/20 01:53 Respiratory Rate 16 02/16/20 07:54 Respiratory Effort 02/16/20 01:53 Respiratory Depth Normal 02/16/20 01:53 Respiratory Pattern Normal 02/16/20 01:53 Blood Pressure 96/50 L 02/16/20 07:54 Blood Pressure Position Sitting 02/15/20 20:42 Pulse Oximetry 99 02/16/20 07:54 Respiratory End-tidal CO2 19 02/16/20 07:54 Oxygen Delivery Method OxyMask 02/16/20 07:54 Oxygen Flow Rate 10 02/16/20 07:54 Pain Level 0 02/16/20 03:45 Intake & Output 02/15/20 02/15/20 02/16/20 11:59 23:59 11:59 Intake Total 450 / 450 Output Total 825 / 825 Balance -375 / -375 Weight 160 lb 0.008 oz 162 lb 4.163 oz Intake: IV 450 / 450 Oral 0 / 0 Output: Urine 825 / 825 Other: Urine Color Yellow Urine Appearance Clear Urine Odor Normal Emesis Description None Voiding Methods Toilet Data Completed and Pending Labs on day of discharge: Labs from last 24 hours 02/15/20 02/15/20 02/15/20 23:03 21:26 20:50 WBC 14.13 H RBC 4.29 Hgb 13.1 Hct 38.4 MCV 89.5 MCH 30.5 MCHC 34.1 RDW 11.5 L Plt Count 216 MPV 10.4 Immature Gran % 0.3 Neutrophils % 74.0 Lymphocytes % 17.8 Monocytes % 7.4 Eosinophils % 0.4 Basophils % 0.1 Absolute Neutrophils 10.46 H Absolute Lymphocytes 2.52 Absolute Monocytes 1.05 H Absolute Eosinophils 0.06 Absolute Basophils 0.01 Sodium Potassium Chloride Carbon Dioxide Anion Gap BUN Creatinine Estimated GFR/1.73 m2 Glucose Calcium Total Bilirubin AST ALT Alkaline Phosphatase Total Protein Albumin Urine Color Straw Urine Clarity Sl cloudy Urine pH 7.0 Ur Specific Beverly 1.015 Urine Protein Negative Urine Ketones Negative Urine Blood Negative Urine Nitrite Negative Urine Bilirubin Negative Urine Urobilinogen 0.2 Ur Leukocyte Esterase Negative Urine Glucose Negative COVID-19 PCR Pending Nasopharyn COVID-19 PCR Pending Ref Test Perform Site Pending 02/15/20 20:50 WBC RBC Hgb Hct MCV MCH MCHC RDW Plt Count MPV Immature Gran % Neutrophils % Lymphocytes % Monocytes % Eosinophils % Basophils % Absolute Neutrophils Absolute Lymphocytes Absolute Monocytes Absolute Eosinophils Absolute Basophils Sodium 137 Potassium 3.8 Chloride 99 Carbon Dioxide 28.2 Anion Gap 9.8 BUN 14 Creatinine 0.87 Estimated GFR/1.73 m2 >= 60.00 Glucose 100 Calcium 9.5 Total Bilirubin 0.5 AST 18 ALT 23 Alkaline Phosphatase 117 H Total Protein 8.2 Albumin 4.3 Urine Color Urine Clarity Urine pH Ur Specific Beverly Urine Protein Urine Ketones Urine Blood Urine Nitrite Urine Bilirubin Urine Urobilinogen Ur Leukocyte Esterase Urine Glucose COVID-19 PCR Nasopharyn COVID-19 PCR Ref Test Perform Site [facility] Medical History (Updated 02/16/20 @ 06:10 by Mily Callejas MD) Acne Asthma outgrown Back pain with radiation (Inactive 02/04/14) seen by chiro who feels 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 ?-rec MRI and steroid taper- referred to ortho at [facility] [place] Herniated intervertebral disc of lumbar spine Herniation of multiple intervertebral discs (Inactive 02/12/14) L4-5, L5-S1 - NEUROSURGERY STEFANY H[facility]RY DAY MARCH 2014 IUD surveillance (Inactive) Molluscum contagiosum (Inactive) 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 Surgical History (Updated 02/16/20 @ 12:31 by Mily Callejas MD) H/O arthroscopic knee surgery (Chronic) right knee x3 S/P appendectomy (Acute ~02/16/20) S/P discectomy for herniated nucleus pulposus (Inactive) Family History Other Essential hypertension Hyperlipidemia Paternal grandparents Parkinson disease PGF Asthma Mother Asthma Other Heart disease Social History (Updated 02/16/20 @ 06:06 by Mily Callejas MD) Smoking/Tobacco Use Status: Never Alcohol Intake: current Alcohol Intake frequency: a few times a month Drug use: Never Substance use type: does not use Household members: family Education Level: college Details: brando at [employer] Do you feel safe at home: Yes Do you feel safe in your relationship?: Yes Female Reproductive History Menstrual control method: vaginal ring and progestin IUCD (Mirena inserted by Mary Carmen Chinchilla APRN HIP=[id number] EXP=12/2020) History History 0 Para Hx # Term Pregnancies Multiple births Hx # Pregnancies Ectopic pregnancies AB induced Hx Number of Living Children AB spontaneous
[2020-02-16] MEDS: HYDROcodone 5/Acetaminophen 325 TAB PO (08:34)
--- NOTE | 2020-02-16 09:19 | NUR.NOTE ---
Nursing Note: pat arrived from PACU at 0815, c/o pain in abd, bilat shoulders and throat, MD in the room at the time. Vs stable, patient sleepy but easily arousable
[2020-02-16 11:14] LABS: COVID-19 RT-PCR UVMMC Result Negative (Negative)
[2020-02-16] MEDS: Ibuprofen 600 MG TAB PO (12:28)
[2020-02-16] MEDS: Acetaminophen 325 MG TAB 650 MG PO (12:28)
== END 2020-02-16 13:09 | disposition home or self-care (01) ==
LOC: ER 22:48 → MS 02-16 00:43
PROVIDERS: Admitting Provider Surgery; Emergency Provider Physician Assistant; PCP Nurse Practitioner; Visit Provider Surgery
PROC: 0DTJ4ZZ Resection of Appendix, Percutaneous Endoscopic Approach (ICD-10-PCS; CPT 44970; principal; 2020-02-16 06:20)
DX: K35.890 Other acute appendicitis without perforation or gangrene (principal); Z03.818 Encounter for observation for suspected exposure to other biological agents ruled out
CPT/HCPCS: 44970; 36415; 80053; 81025; 96361; 96365; 96375; 99223; 99285; NC; U0003; 74177; 81003; 85025; 88304; G0378; J0131; J1100; J1885; J2250; J2405; J2543; J2704; J3490

== ENCOUNTER 2020-02-22 12:32 | Emergency (ER) | payer BC, SELFPAY ==
[2020-02-22 12:38] VITALS: BP 105/55; PULSE 92; RESP 16; TEMP 36.6; O2SAT 95
--- NOTE | 2020-02-22 12:51 | ED.GENADUL_ITS ---
Discharge Plan Disposition Patient Disposition: HOME Condition: Stable Discharge Details Chief Complaint: Cellulitis Clinical Impression: Rash, skin Primary Care Provider: Sandra Lopez ED Provider: Robert Webb Home Meds and New Rx's Prescriptions: New hydrocortisone 1 % cream 1 applic TP BID 7 Days Qty: 28 RF: 0 cephalexin [Keflex] 500 mg capsule 500 mg PO QID Qty: 21 RF: 0 Continued Mirena 20 mcg/24 hr (5 years) intrauterine device 1 insert IY ONCE Qty: 1 RF: 0 ferrous sulfate 27 mg iron tablet 27 mg PO DAILY RF: 0 cholecalciferol (vitamin D3) 3,000 unit tablet 1,000 unit PO DAILY RF: 0 spironolactone 50 mg tablet 100 mg PO DAILY RF: 0 acetaminophen [Tylenol] 325 mg tablet 650 mg PO Q6H PRN (Reason: pain) Qty: 30 RF: 0 ibuprofen 200 mg tablet 600 mg PO Q6H PRNQty: 30 RF: 0 hydrocodone-acetaminophen 5-325 mg tablet 1 tab PO Q6H PRN (Reason: pain) Qty: 14 RF: 0 Discharge Instructions Additional Instructions: Monitor your rash closely and take pictures daily. Avoid creams or adhesives over wound. Use steroid cream as prescribed. Please contact your surgeon to arrange follow-up. I understand you will be traveling out of the area. If wound worsens over the next couple days, please start antibiotic and take full course as prescribed. Return to the ER for any worsening or new concerning symptoms. Referrals: Mily Callejas MD [ [facility] STAFF PHYSICIAN] - Medical Decision Making 19-year-old female here with itchy red rash surrounding laparoscopic appendectomy surgical wounds. Abdominal exam is benign. Suspect hypersensitivity reaction versus less likely cellulitis. I spoke with Dr. Saunders, on-call general surgery, we discussed ED presentation and I sent her images of the rash for review. She feels likely hypersensitivity reaction. She recommends not starting antibiotics at this time. She recommends starting hydro-cortisone cream. Patient has follow-up scheduled with her surgical team this week. I encouraged her to return immediately should she have any worsening or new concerning symptoms. Usual customary discharge instructions were provided. Of note, patient is traveling outside the area the next few days. I will give her a prescription for Keflex and instructed her to use only if rash is worsening and with no improvement on steroid. HPI General Mode of arrival: ambulatory . Date/Time Provider Initiated Documentation: 02/22/20 12:36 . Limitations to Documentation: no limitations . Information obtained by: patient . HPI Narrative: 19-year-old female here 6 days status post laparoscopic appendectomy with rash surrounding surgical wounds. Patient notes she has had rash over the past week. 1 rash seemed worse today over left abdomen. Rash is red, itchy and circular. No associated discharge. No associated fever. No abdominal pain. Related Data Home Medications Medication Instructions Recorded Confirmed levonorgestrel 20 mcg/24 hours (5 1 insert IY ONCE #1 each 08/30/18 02/22/20 yrs) 52 mg intrauterine device cholecalciferol (vitamin D3) 75 1,000 unit PO DAILY tab 08/12/19 02/22/20 mcg (3,000 unit) tablet ferrous sulfate 27 mg iron tablet 27 mg PO DAILY 08/12/19 02/22/20 spironolactone 100 mg PO DAILY 02/15/20 02/22/20 acetaminophen [Tylenol] 650 mg PO Q6H PRN #30 tab 02/16/20 02/22/20 hydrocodone-acetaminophen 1 tab PO Q6H PRN #14 tab 02/16/20 02/22/20 ibuprofen 600 mg PO Q6H PRN #30 tab 02/16/20 02/22/20 cephalexin [Keflex] 500 mg PO QID #21 cap 02/22/20 hydrocortisone 1 applic TP BID 7 Days #28 gm 02/22/20 Previous Rx's Medication Instructions Recorded levonorgestrel 20 mcg/24 hours (5 1 insert IY ONCE #1 each 08/30/18 yrs) 52 mg intrauterine device acetaminophen [Tylenol] 650 mg PO Q6H PRN #30 tab 02/16/20 hydrocodone-acetaminophen 1 tab PO Q6H PRN #14 tab 02/16/20 ibuprofen 600 mg PO Q6H PRN #30 tab 02/16/20 cephalexin [Keflex] 500 mg PO QID #21 cap 02/22/20 hydrocortisone 1 applic TP BID 7 Days #28 gm 02/22/20 Allergies Allergy/AdvReac Type Severity Reaction Status Date / Time No Known Allergies Allergy Verified 02/15/20 20:48 General Stated Complaint: Cellulitis KEARA: 4 Review of Systems All systems reviewed & are unremarkable except as noted in HPI and below Constitutional Constitutional: Denies fever(s) Gastrointestinal Gastrointestinal: Denies abdominal pain PFSH Medical History Acne Asthma outgrown Back pain with radiation (Inactive 02/04/14) seen by chiro who feels 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 ?-rec MRI and steroid taper- [place] [facility] [place] intervertebral disc of lumbar spine Herniation of multiple intervertebral discs (Inactive 02/12/14) L4-5, L5-S1 - NEUROSURGERY [facility]EFANY [facility]March 2014 IUD surveillance (Inactive) Molluscum contagiosum (Inactive) 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 Surgical History H/O arthroscopic knee surgery (Chronic) right knee x3 S/P appendectomy (Acute ~02/16/20) S/P discectomy for herniated nucleus pulposus (Inactive) Family History Other Essential hypertension Hyperlipidemia Paternal grandparents Parkinson disease PGF Asthma Mother Asthma Other Heart disease Social History Smoking/Tobacco Use Status: Never Alcohol Intake: current Alcohol Intake frequency: a few times a month Drug use: Never Substance use type: does not use Household members: family Education Level: college Details: brando at [employer] Do you feel safe at home: Yes Do you feel safe in your relationship?: Yes Female Reproductive History Menstrual control method: vaginal ring and progestin IUCD (Mirena inserted by Mary Carmen Chinchilla APRN [id number] EXP=12/2020) History History 0 Para Hx # Term Pregnancies Multiple births Hx # Pregnancies Ectopic pregnancies AB induced Hx Number of Living Children AB spontaneous Exam Const General: cooperative and no acute distress HENMT Mouth: moist mucous membranes Resp Auscultation: clear to auscultation bilaterally, no rales, no rhonchi and no wheezes Cardio Rate: regular rate and not tachycardic Rhythm: regular rhythm GI Palpation: soft, not firm, no guarding, no masses, not rigid and nontender Skin Rashes: rashes noted (3 cm circular red rash surrounding left abdominal sx site) Other: No discharge from surgical wounds, no fluctuance, no induration, mild <1cm erythema surrounding other 2 surgical sites Neuro General: patient alert, patient awake and tone normal Extrem General: no edema Course Vital Signs Vital signs: Vital Signs Temperature 36.6 C 02/22/20 12:38 Pulse 92 H 02/22/20 12:38 Respiratory Rate 16 02/22/20 12:38 Blood Pressure 105/55 L 02/22/20 12:38 Pulse Oximetry 95 02/22/20 12:38 Temperature 36.6 C 02/22/20 12:38 Temperature Source Tympanic 02/22/20 12:38 Pulse 92 H 02/22/20 12:38 Respiratory Rate 16 02/22/20 12:38 Respiratory Effort Non-Labored 02/22/20 12:42 Blood Pressure 105/55 L 02/22/20 12:38 Blood Pressure Position Sitting 02/22/20 12:38 Pulse Oximetry 95 02/22/20 12:38 Oxygen Delivery Method Room Air 02/22/20 12:38 Oxygen Flow Rate 0 02/22/20 12:38 Pain Level 2 02/22/20 12:38
== END 2020-02-22 13:19 | disposition home or self-care (01) ==
PROVIDERS: Emergency Provider Student in an Organized Health Care Education/Training Program; PCP Nurse Practitioner
DX: R21 Rash and other nonspecific skin eruption (principal); Y83.6 Removal of other organ (partial) (total) as the cause of abnormal reaction of the patient, or of later complication, without mention of misadventure at the time of the procedure
CPT/HCPCS: 99283